=== PATIENT | female | born 1995 | race African-American/Black ===

== ENCOUNTER 2020-09-13 08:06 | Emergency (ER) | payer OTHER ==
[~2020-09-13] VITALS: Ht 165.1 cm; Wt 63.0 kg
[2020-09-13] MEDS ORDERED: ENBRACE HR SOF1 EACH PO (08:09)
[2020-09-13 08:35] LABS: HEMATOCRIT 39.8 % (37.0-47.0); HEMOGLOBIN 13.6 gm/dL (12.0-15.0); MCH 29.9 pg (26.0-34.0); MCHC 34.2 g/dL (28.0-37.0); MCV 87.5 fL (80.0-100.0); RBC 4.55 mil/uL (4.20-5.00); RDW 12.6 % (10.5-14.5); WBC 10.2 thou/uL (4.0-11.0)
[2020-09-13 08:44] LABS: CALCIUM 9.1 mg/dL (8.5-10.1); CREATININE 0.8 mg/dL (0.6-1.0); POTASSIUM 3.4 mmol/L (3.5-5.1)
[2020-09-13 09:17] LABS: URINE BILIRUBIN NEGATIVE (Negative); URINE BLOOD NEGATIVE (Negative); URINE CLARITY CLEAR; URINE COLOR YELLOW; URINE GLUCOSE-RANDOM* NEGATIVE (Negative); URINE KETONES 2+ (Negative); URINE LEUKOCYTES-REFLEX TRACE (Negative); URINE NITRITE-REFLEX NEGATIVE (Negative); URINE PROTEIN (DIPSTICK) NEGATIVE (Negative); URINE UROBILINOGEN 0.2 E.U./dl (0.2-1.0)
[2020-09-13] MEDS ORDERED: MILK OF MA400 MG/5 M PO (09:25)
[2020-09-13 09:46] VITALS: BP 131/74
== END 2020-09-13 09:48 | disposition home or self-care (01) ==
LOC: ER 08:06
PROVIDERS: Emergency Medicine
DX: O26.892 Other specified pregnancy related conditions, second trimester (principal); K59.00 Constipation, unspecified; Z79.899 Other long term (current) drug therapy; Z3A.00 Weeks of gestation of pregnancy not specified

== ENCOUNTER 2021-02-06 12:43 | Emergency (ER) | payer OTHER ==
[~2021-02-06] VITALS: Ht 154.9 cm; Wt 63.5 kg
[~2021-02-06 12:43] MED LIST: ENBRACE HR SOF1 EACH PO; MILK OF MA400 MG/5 M PO
[2021-02-06 15:00] VITALS: BP 108/55
== END 2021-02-06 15:16 | disposition home or self-care (01) ==
LOC: ER 12:43
DX: O9A.212 Injury, poisoning and certain other consequences of external causes complicating pregnancy, second trimester (principal); S90.111A Contusion of right great toe without damage to nail, initial encounter; Z79.899 Other long term (current) drug therapy; Z3A.27 27 weeks gestation of pregnancy; W22.8XXA Striking against or struck by other objects, initial encounter; Y93.89 Activity, other specified; Y92.89 Other specified places as the place of occurrence of the external cause; Y99.9 Unspecified external cause status